=== PATIENT | female | born 1970 | race Two or more races ===

== ENCOUNTER 2017-11-10 12:49 | Outpatient (CLI) | payer OTHER | END 2017-11-10 13:00 | disposition home or self-care (01) | LOC: MAMO-SONO 12:49 | DX: Z12.31 Encounter for screening mammogram for malignant neoplasm of breast (principal); N63.10 Unspecified lump in the right breast, unspecified quadrant; N63.20 Unspecified lump in the left breast, unspecified quadrant; N92.1 Excessive and frequent menstruation with irregular cycle ==

== ENCOUNTER 2017-11-18 09:58 | Day surgery (SDC) | payer OTHER ==
[2017-11-18] MEDS ORDERED: IRON325 MG PO (13:41)
== END 2017-11-18 16:40 | disposition home or self-care (01) ==
LOC: CIR.AMB 09:58
DX: D25.0 Submucous leiomyoma of uterus (principal)